=== PATIENT | male | born 1995 | race Caucasian/White ===

== ENCOUNTER → 2019-10-06 | Outpatient (CLI) | payer BC ==
[~2019-10-06] MED LIST: AZIT-21 PO; CETI-176 PO; IBP800T PO; LISI10TA PO; METFOR850T PO; MOBIC PO; PRD20T PO
--- NOTE | 2019-10-06 13:59 | Diagnostic Imaging Report ---
CLINICAL HISTORY: Low back pain after lifting weights. COMPARISON: None TECHNIQUE: Three views of the lumbar spine. FINDINGS: There is no acute fracture or dislocation of the lumbar spine. Alignment is anatomic. The vertebral body heights and disc spaces are well-maintained. Possible incomplete fusion of the posterior elements of L5 are noted. The included soft tissues are unremarkable. IMPRESSION: 1. No acute fracture or dislocation in the lumbar spine. 2. 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 Dictated by: Dictated on workstation # [id number]
== END ==
LOC: RAD 12:45
DX: M54.5 Low back pain (principal); X50.0XXA Overexertion from strenuous movement or load, initial encounter
CPT/HCPCS: 72100